=== PATIENT | female | born 1975 | race American Indian/Alaskan Native ===

== ENCOUNTER 2018-12-24 13:45 | Outpatient (CLI) | payer MEDICARE ==
--- NOTE | 2018-12-24 14:52 | Mammography Report ---
DIGITAL SCREENING MAMMOGRAM WITH CAD, 12/24/2018 INDICATION: Routine screening mammography. TECHNIQUE: Digital bilateral 2D mammography was obtained in the craniocaudal and mediolateral obliq ue projections. This examination was interpreted with the benefit of Computer-Aided Detection analysi s. COMPARISON: 10/04/2015 FINDINGS: Breast Density: The breasts are heterogeneously dense, which may obscure small masses. There is no evidence of dominant mass, suspicious calcifications or architectural distortion in the l eft breast. A new focal irregular density is seen in the far posterior medial left breast at 3:00, ap proximately 10 cm from the nipple. IMPRESSION: New focal asymmetric density on the left. Recommend spot compression views and ultrasound if needed. BI-RADS Category 0: Incomplete. Needs additional imaging evaluation and/or prior mammograms for oskar rison. A "normal" or negative report should not discourage follow up or biopsy of a clinically significant f inding. A written summary of these findings will be mailed to the patient. The patient will be entered into a mammography reporting system which will generate a reminder letter for the patient's next appointmen t at the appropriate interval. The [employer] recommends yearly mammograms starting at age 40 and continuing as l lilian as a woman is in good health. Breast MRI is recommended for women with an approximate 20-25% or greater lifetime risk of breast cancer, including women with a strong family history of breast or ova ayaka cancer or who have been treated for Hodgkin's disease. Signer Name: Sachin Wray MD Signed: 12/24/2018 2:47 PM Workstation Name: [id number]
== END 2018-12-24 13:46 | disposition home or self-care (01) ==
LOC: MAMMO 13:45
PROVIDERS: ATTEND Hospitalist
DX: Z12.31 Encounter for screening mammogram for malignant neoplasm of breast (principal)
CPT/HCPCS: 77067